=== PATIENT | male | born 1995 | race Caucasian/White ===

== ENCOUNTER 2020-10-01 21:36 | Emergency (ER) | payer BC, MEDICAID ==
--- NOTE | 2020-10-01 22:18 | EDM.PDOC ---
ED HPI GENERAL MEDICAL PROBLEM - General Chief Complaint: General Stated Complaint: DOUBLE DOSE OF MEDICATION Time Seen by Provider: 10/01/20 22:13 - History of Present Illness INITIAL COMMENTS - FREE TEXT/NARRATIVE: HISTORY AND PHYSICAL: History of present illness: This is a 25-year-old gentleman who presents from his [facility] today secondary to being accidentally dosed with a second dose of his medications. Patient's caregiver is with him and reports that he went to visit his mother this weekend and he took his dose of medications at 5 PM with his mom. This evening when he returned back to the [facility] he was given his evening medications again at 7 PM. Patient is here for medical clearance. Patient currently has no complaints. Patient has no fevers, shakes, chills, nausea, vomiting, diarrhea. Caregiver reports that he is currently at his baseline mental status. Patient reports that he feels well. Patient took an extra dose of Lamictal, Paxil, topiramate. Review of systems: As per history of present illness and below otherwise all systems reviewed and negative. Past medical history: As per history of present illness and as reviewed below otherwise noncontributory. Surgical history: As per history of present illness and as reviewed below otherwise noncontributory. Social history: No reported history of drug or alcohol abuse. Family history: As per history of present illness and as reviewed below otherwise noncontributory. Physical exam: This patient was seen and evaluated during the 2019 SARS-CoV-2 novel coronavirus pandemic period. Community viral transmission is ongoing at time of this encounter and the emergency department is operating under pandemic response procedures. Constitutional: Patient is oriented to person, place, and time. Appears well- developed and well-nourished. No distress. HEENT: Moist mucous membranes Head: Normocephalic and atraumatic Eyes: Right eye exhibits no discharge. Left eye exhibits no discharge. No scleral icterus Neck: Normal range of motion. No tracheal deviation present. Cardiovascular: Normal rate and regular rhythm. Pulmonary: Effort normal, no respiratory distress. Abdominal: No distention Musculoskeletal: Normal range of motion Neurologic: Alert and oriented to person, place and time. Skin: [place], warm and dry. Psychiatric: Normal mood and affect. Behavior is normal. Judgment and thought content normal. Nursing note and vital signs have been reviewed Diagnostics: [] Therapeutics: [] Assessment and plan: 25-year-old gentleman who presents ER today secondary to receiving a second dose of his evening medications of Lamictal, Paxil, topiramate. Patient is clinically hemodynamically stable. Patient vital signs are within normal limits. Patient is currently 3 hours out after the second ingestion of medications. This appears to be a nontoxic ingestion of his extra dose of medications. I recommended that they resume his normal dose in the morning. Reassessment at the time of disposition demonstrates that the patient is in no acute distress. The patient has remained stable throughout the entire ED visit and is without objective evidence for acute process requiring urgent intervention or hospitalization. The patient is stable for discharge, counseling is provided as documented above, discussed symptomatic treatment and specific conditions for return. I have spoken with the patient/caregiver and discussed todays findings, in addition to providing specific details for the plan of care. Questions are answered and there is agreement with the plan. Definitive disposition and diagnosis as appropriate pending reevaluation and review of above. - Related Data Allergies Allergy/AdvReac Type Severity Reaction Status Date / Time codeine Allergy Other Verified 10/01/20 21:58 Home Meds: Home Meds PARoxetine [Paxil] 20 mg PO DAILY 10/01/20 [History] Topiramate 100 mg PO BID 10/01/20 [History] lamoTRIgine [Lamictal (Green)] 2 mg PO BID 10/01/20 [History] Past Medical History Neurological History: Reports: Seizure Social & Family History - Tobacco Use Tobacco Use Status *Q: Never Tobacco User - Recreational Drug Use Recreational Drug Use: No ED ROS GENERAL - Review of Systems Review Of Systems: See Below ED EXAM, GENERAL - Physical Exam Exam: See Below Course - Vital Signs Last Recorded V/S: Last Vital Signs Temp 97.8 F 10/01/20 22:00 Pulse 70 10/01/20 22:00 Resp 18 10/01/20 22:00 BP 104/51 L 10/01/20 22:08 Pulse Ox 97 10/01/20 22:00 Departure - Departure Time of Disposition: 22:17 Disposition: Home, Self-Care 01 Condition: Good Clinical Impression: Accidental drug overdose Qualifiers: Encounter type: initial encounter Qualified Code(s): T50.901A - Poisoning by unspecified drugs, medicaments and biological substances, accidental (unintentional), initial encounter - Discharge Information Instructions: Accidental Drug Poisoning, Adult Referrals: Malika Lindsey MD [Primary Care Provider] - Additional Instructions: Your seen and evaluated in the ER today secondary to taking a double dose of your evening medications. At this time, it does not appear that you have any toxic side effects from the second dose. Please resume your normal medication doses in the morning. The following information is given to patients seen in the emergency department who are being discharged to home. This information is to outline your options for follow-up care. We provide all patients seen in our emergency department with a follow-up referral. The need for follow-up, as well as the timing and circumstances, are variable depending upon the specifics of your emergency department visit. If you don't have a primary care physician on staff, we will provide you with a referral. We always advise you to contact your personal physician following an emergency department visit to inform them of the circumstance of the visit and for follow-up with them and/or the need for any referrals to a consulting specialist. The emergency department will also refer you to a specialist when appropriate. This referral assures that you have the opportunity for follow-up care with a specialist. All of these measure are taken in an effort to provide you with optimal care, which includes your follow-up. Under all circumstances we always encourage you to contact your private physician who remains a resource for coordinating your care. When calling for follow-up care, please make the office aware that this follow-up is from your recent emergency room visit. If for any reason you are refused follow-up, please contact the [facility] Emergency Department at and asked to speak to the emergency department charge nurse. [facility] [address] [place] [id number] [address] [address] Sepsis Event Note (ED) - Evaluation Sepsis Screening Result: No Definite Risk - Focused Exam Vital Signs: Vital Signs Temp Pulse Resp BP Pulse Ox 10/01/20 22:08 104/51 L 10/01/20 22:00 97.8 F 70 18 97
== END 2020-10-01 22:30 | disposition home or self-care (01) ==
LOC: MW.ED 21:36
DX: T42.6X1A Poisoning by other antiepileptic and sedative-hypnotic drugs, accidental (unintentional), initial encounter (principal)
CPT/HCPCS: 99282; 99283